=== PATIENT | male | born 1935 | race Caucasian/White ===

== ENCOUNTER 2021-12-21 19:23 | Inpatient (IN) | payer OTHER ==
[2021-12-21 19:36] VITALS: BMI 18.8
[2021-12-21] MEDS ORDERED: ACETAMINOPHEN 1000 MG/100 ML BAG IVPB ONE (20:26)
[2021-12-21] MEDS ORDERED: ACETAMINOPHEN INJECTION 100 ML IVPB ONE (20:50)
[2021-12-21 21:42] LABS: INR 1.08 (0.83-1.09); PROTHROMBIN TIME (PATIENT) 12.4 SEC (9.7-13.0)
[2021-12-21 21:43] LABS: BASO % 0.2 % (0-2.0); CALCIUM 8.9 mg/dL (8.5-10.1); EOS % 0.3 % (0-4.5); HEMATOCRIT 32.7 % (35.4-49); HEMOGLOBIN 11.4 GM/dL (11.7-16.9); LYMPH % 4.8 % (8-40); MCH 31.7 pg (25.7-33.7); MCHC 34.8 g/dl (32.0-35.9); MEAN CELL VOLUME 91.1 fl (80-96); MONO % 7.3 % (3.8-10.2); NEUT % 87.4 % (42.8-82.8); PLATELET COUNT 216 10^3/uL (134-434); RBC 3.59 M/mm3 (4.00-5.60); RDW 13.6 % (11.9-15.9); WHITE BLOOD COUNT 10.6 K/mm3 (4.0-10.0)
[2021-12-21 21:44] LABS: ALBUMIN 3.4 g/dl (3.4-5.0); BLOOD UREA NITROGEN 13.7 mg/dL (7-18)
[2021-12-21 21:45] LABS: ACTIVATED PTT 28.7 SECONDS (25.2-36.5)
[2021-12-21 21:47] LABS: CREATININE 0.7 mg/dL (0.55-1.3)
[2021-12-21 21:48] LABS: BILIRUBIN,TOTAL 0.6 mg/dL (0.2-1); TOT PROT 6.8 g/dl (6.4-8.2)
[2021-12-21] MEDS ORDERED: SODIUM CHLORIDE 0.9% 500 ML INFUS.BAG IV ONE (22:59)
[2021-12-22 07:12] LABS: HEMATOCRIT 32.8 % (35.4-49); HEMOGLOBIN 11.2 GM/dL (11.7-16.9); MAGNESIUM 2.1 mg/dL (1.8-2.4); MCH 31.3 pg (25.7-33.7); MCHC 34.2 g/dl (32.0-35.9); MEAN CELL VOLUME 91.6 fl (80-96); PLATELET COUNT 220 10^3/uL (134-434); RBC 3.58 M/mm3 (4.00-5.60); RDW 13.5 % (11.9-15.9); WHITE BLOOD COUNT 10.3 K/mm3 (4.0-10.0)
[2021-12-22 07:16] LABS: PHOSPHOROUS 2.9 mg/dL (2.5-4.9)
[2021-12-22] MEDS ORDERED: CHOLECALCIFEROL (VIT D3) 1,000 UNIT (25 MCG) TABLET PO SCH ×2 (10:00→17:05)
[2021-12-22] MEDS ORDERED: DEXAMETHASONE SOD PHOSPHATE 10 MG/1 ML VIAL IVPUSH SCH (10:00)
[2021-12-22 11:25] LABS: BLOOD UREA NITROGEN 10.3 mg/dL (7-18)
[2021-12-22] MEDS ORDERED: DEXAMETHASONE SOD PHOSPHATE 10 MG/1 ML VIAL ONE (11:28)
[2021-12-22] MEDS ORDERED: ENOXAPARIN NA (PORCINE) 40 MG/0.4 ML DISP.SYRIN SQ ONE (11:28)
[2021-12-22] MEDS ORDERED: CHOLECALCIFEROL (VIT D3) 1,000 UNIT (25 MCG) TABLET ONE (11:28)
[2021-12-22] MEDS ORDERED: ASCORBIC ACID 500 MG TABLET (FP) ONE (11:28)
[2021-12-22 11:29] LABS: CREATININE 0.7 mg/dL (0.55-1.3)
[2021-12-22 11:30] LABS: BILIRUBIN,TOTAL 0.7 mg/dL (0.2-1); TOT PROT 6.2 g/dl (6.4-8.2)
[2021-12-22] MEDS: INSULIN SLIDING SCALE (NOVOLOG) 1 VIAL SQ SCH ×3 (11:48→22:15)
[2021-12-22] MEDS: ASCORBIC ACID 500 MG TABLET (FP) PO SCH ×2 (11:48→22:15)
[2021-12-22] MEDS: ENOXAPARIN NA (PORCINE) 40 MG/0.4 ML DISP.SYRIN SQ SCH (11:48)
[2021-12-22 21:06] LABS: URINE APPEARANCE CLEAR; URINE BILIRUBIN NEGATIVE (NEGATIVE); URINE COLOR YELLOW; URINE GLUCOSE (UA) NEGATIVE (NEGATIVE); URINE KETONE TRACE (NEGATIVE); URINE LEUK ESTERASE NEGATIVE (NEGATIVE); URINE NITRITE NEGATIVE (NEGATIVE); URINE PROTEIN NEGATIVE (NEGATIVE); URINE UROBILINOGEN 0.2 mg/dL (0.2-1.0)
[2021-12-22] MEDS ORDERED: ATORVASTATIN CA 20 MG TABLET (FP) PO SCH (22:00)
[2021-12-23] MEDS: INSULIN SLIDING SCALE (NOVOLOG) 1 VIAL SQ SCH ×4 (06:09→17:00)
[2021-12-23 08:33] LABS: HEMATOCRIT 34.6 % (35.4-49); HEMOGLOBIN 11.7 GM/dL (11.7-16.9); MCH 31.1 pg (25.7-33.7); MCHC 33.9 g/dl (32.0-35.9); MEAN CELL VOLUME 91.7 fl (80-96); MEAN PLT VOLUME 9.3 fl (7.5-11.1); PLATELET COUNT 251 10^3/uL (134-434); RBC 3.77 M/mm3 (4.00-5.60); RDW 13.2 % (11.9-15.9); WHITE BLOOD COUNT 14.8 K/mm3 (4.0-10.0)
[2021-12-23 08:56] LABS: ALBUMIN 2.9 g/dl (3.4-5.0); BLOOD UREA NITROGEN 13.4 mg/dL (7-18)
[2021-12-23 08:57] LABS: CALCIUM 8.8 mg/dL (8.5-10.1); MAGNESIUM 1.8 mg/dL (1.8-2.4)
[2021-12-23 08:59] LABS: CREATININE 0.7 mg/dL (0.55-1.3)
[2021-12-23 09:01] LABS: BILIRUBIN,TOTAL 0.8 mg/dL (0.2-1); TOT PROT 6.6 g/dl (6.4-8.2)
[2021-12-23] MEDS ORDERED: ZINC SULFATE 220 MG CAPSULE (FP) PO SCH (10:00)
[2021-12-23] MEDS ORDERED: ASPIRIN COATED 81 MG TABLET.EC PO SCH (10:00)
[2021-12-23] MEDS ORDERED: DEXAMETHASONE SOD PHOSPHATE 10 MG/1 ML VIAL IVPUSH SCH (10:00)
[2021-12-23] MEDS: ENOXAPARIN NA (PORCINE) 40 MG/0.4 ML DISP.SYRIN SQ SCH (11:02)
[2021-12-23] MEDS: ASCORBIC ACID 500 MG TABLET (FP) PO SCH (11:03)
[2021-12-23 15:20] VITALS: BP 152/62; PULSE 80; RESP 17; TEMP 98
== END 2021-12-23 17:05 | disposition home or self-care (01) | DRG 178 ==
LOC: JER 19:23 → JERBED 22:52 → OBSVTOIN 12-22 00:52 → J4W 12-22 13:16 → J4S 12-22 21:01
PROVIDERS: ADMIT Internal Medicine; ATTEND Internal Medicine
DX: U07.1 COVID-19 (principal); R64 Cachexia; Z68.1 Body mass index [BMI] 19.9 or less, adult; R55 Syncope and collapse; I48.91 Unspecified atrial fibrillation; E11.65 Type 2 diabetes mellitus with hyperglycemia; D64.9 Anemia, unspecified; Z85.01 Personal history of malignant neoplasm of esophagus; D50.9 Iron deficiency anemia, unspecified; K44.9 Diaphragmatic hernia without obstruction or gangrene; N20.0 Calculus of kidney
CPT/HCPCS: 0241U-QW; 36415; 70450-TC; 71045-TC-FY; 72125-TC; 74176-TC; 80053; 81003; 82962; 83036; 83540; 83550; 83605; 83735; 84100; 84443; 84484; 85025; 85027; 85045; 85610; 85730; 86140; 87086; 93005; 93010; 93306-TC; 93880-TC; 97116-GP; 97162-GP; 99285-25; G0378; J1100